=== PATIENT | female | born 1995 | race Caucasian/White ===

== ENCOUNTER → 2016-10-09 | Outpatient (CLI) | payer MEDICAID | LOC: BRMIMAGING 15:43 | PROVIDERS: ATTEND Registered Nurse | DX: M25.551 Pain in right hip (principal); M54.5 Low back pain | CPT/HCPCS: 72100-PO; 73502-PO ==

== ENCOUNTER → 2017-07-31 | Outpatient (CLI) | payer MEDICAID | LOC: BRMIMAGING 12:59 | PROVIDERS: ATTEND Registered Nurse | DX: R10.11 Right upper quadrant pain (principal); M54.9 Dorsalgia, unspecified; R82.2 Biliuria | CPT/HCPCS: 76700-PO ==